=== PATIENT | male | born 1965 ===

== ENCOUNTER 2018-04-20 01:04 | Emergency (ER) | payer OTHER ==
[2018-04-20] MEDS ORDERED: Ketorolac Tromethamine 30 MG/ML VIAL ONE (01:32)
[2018-04-20] MEDS ORDERED: Orphenadrine Citrate 60 MG/2 ML VIAL ONE (03:36)
--- NOTE | 2018-04-20 08:13 | CT ---
PRELIMINARY REPORT/[facility]/EMERGENCY AFTER HOURS PROCEDURE: EXAM: CT Lumbar Spine Without Intravenous Contrast EXAM DATE/TIME: 04/20/2018 1:47 AM CLINICAL HISTORY: 52 years old, male; Injury or trauma; Fall; Initial encounter; Sprain or strain, lumbar ligaments; In jury date: 04/20/2018; Injury details: Patient bent over felt and heard a pop then fell TECHNIQUE: Axial computed tomography images of the lumbar spine without intravenous contrast. All CT scans at [facility] use at least one of these dose optimization techniques: automated exposure control; mA an d/or kV adjustment per patient size (includes targeted exams where dose is matched to clinical indication); or iterative reconstruction. Coronal and sagittal reformatted images were created and reviewed. COMPARISON: No relevant prior studies available. FINDINGS: Vertebrae: No acute fracture. Normal alignment. Discs/Spinal canal/Neural foramina: No spinal stenosis. No neural foraminal narrowing. Soft tissues: Unremarkable. Other: Trace pleural effusions. Moderate colonic fecal retention. IMPRESSION: No acute fracture or dislocation. Thank you for allowing us to participate in the care of your patient. Dictated and Authenticated by: Mario Genao MD 04/20/2018 3:22 AM Central Time ([place] & [place]) FINAL REPORT EMERGENCY AFTER HOURS CT OF THE LUMBAR SPINE: Date: 04/20/18 IMPRESSION: I agree with the preliminary interpretation given by Irina. There is no evidence for an acute osseous abnormality. No significant central canal stenosis is apparent by CT. Small bilateral pleural effusio ns are partially visualized. POS: [facility]
== END 2018-04-20 03:42 ==
LOC: NAV ERS 01:04
DX: M54.5 Low back pain (principal); M19.90 Unspecified osteoarthritis, unspecified site; Z87.01 Personal history of pneumonia (recurrent); Z79.899 Other long term (current) drug therapy; X50.1XXA Overexertion from prolonged static or awkward postures, initial encounter
CPT/HCPCS: 72131; 96374; 96375; J1885; J2360